=== PATIENT | female | born 1980 | race Caucasian/White ===

== ENCOUNTER 2016-09-08 03:51 | Emergency (ER) | payer MEDICAID, OTHER ==
[~2016-09-08] VITALS: Ht 157.5 cm; Wt 67.0 kg
[2016-09-08 03:53] VITALS: Ht 157.5 cm; Wt 67.0 kg
[2016-09-08 05:06] LABS: URINE BLOOD (Dip) POC 2+ (NEGATIVE)
--- NOTE | 2016-09-08 05:24 | ERD ---
ER Documentation Chief Complaint Date/Time DATE: 09/08/16 TIME: 05:10 Chief Complaint Frequent urination with burning HPI 36-year-old female presents here in emergency department for complaints of pain upon urination, patient described the pain as burning pain, 4/10 scale, is worse upon urination. Patient is quite of urinary urgency and frequency. Patient denies any abdominal pain or flank pain. Patient denies any fever or chills. Patient denies any nausea or vomiting. ROS All systems reviewed and are negative except as per history of present illness. Medications Home Meds Reported Medications [none] Unknown Strength No Conflict Check 09/08/16 Allergies Allergies: Coded Allergies: No Known Allergy (Unverified , 09/08/16) PMhx/Soc Hx Miscellaneous Medical Probl: Yes (TUBAL LIGATION) Hx Alcohol Use: No Hx Substance Use: No Hx Tobacco Use: No Smoking Status: Never smoker FmHx Family History: No coronary disease, No diabetes, No other Physical Exam Vitals Vital Signs Date Time Temp Pulse Resp B/P Pulse Ox O2 Delivery O2 Flow Rate FiO2 09/08/16 03:53 98.4 79 18 126/72 98 Physical Exam GENERAL: The patient is well developed and appropriate for usual state of health, in no apparent distress. CHEST: Clear to auscultation bilaterally. There are no rales, wheezes or rhonchi. HEART: Regular rate and rhythm. No murmurs, clicks, rubs or gallops. No S3 or S4. ABDOMEN: Soft, nontender and nondistended. Good bowel sounds. No rebound or guarding. No gross peritonitis. No gross organomegaly or masses. No Brizuela sign or McBurney point tenderness. BACK: No midline or flank tenderness. EXTREMITIES: Equal pulses bilaterally. There is no peripheral clubbing, cyanosis or edema. No focal swelling or erythema. Full range of motion. Grossly neurovascularly intact. NEURO: Alert and oriented. Cranial nerves 2-12 intact. Motor strength in all 4 extremities with 5/5 strength. Sensation grossly intact. Normal speech and gait. SKIN: There is no apparent rash or petechia. The skin is warm and dry. HEMATOLOGIC AND LYMPHATIC: There is no evidence of excessive bruising or lymphedema. No gross cervical, axillary, or inguinal lymphadenopathy. Results 24 hrs Laboratory Tests Test 09/08/16 05:08 Bedside Urine Blood 2+ Bedside Urine Glucose (UA) Negative Bedside Urine Ketones (LAB) Negative Bedside Urine Leukocyte Esterase (L 2+ Bedside Urine Nitrite (LAB) Negative Bedside Urine Protein (LAB) Trace Bedside Urine pH (LAB) 6.0 Procedures/MDM Medical Decision Making: Patients symptoms are consistent with urinary tract infection. There is low suspicion for pyelonephritis. There is low suspicion for abdominal emergencies at this time. Patients abdominal exam is normal. There is low suspicion for sepsis. Patient appears well and is hemodynamically stable. Prescription: Pyridium, Macrobid Departure Diagnosis: Primary Impression: UTI (urinary tract infection) Urinary tract infection type: acute cystitis Hematuria presence: without hematuria Qualified Code: N30.00 - Acute cystitis without hematuria Condition: Stable Patient Instructions: Understanding Urinary Tract Infections (UTIs) CELIA PELLETIER NP Sep 08, 2016 05:23
[2016-09-08] MEDS ORDERED: NITR-58 PO (05:26)
[2016-09-08] MEDS ORDERED: PHEN-538 PO (05:26)
== END 2016-09-08 05:32 | disposition home or self-care (01) ==
LOC: FTE 03:51
DX: N30.00 Acute cystitis without hematuria (principal)
CPT/HCPCS: 81003; Z7502; 99283

== ENCOUNTER 2016-11-03 15:49 | Emergency (ER) | payer MEDICAID ==
[~2016-11-03] VITALS: Ht 154.9 cm; Wt 65.0 kg
[~2016-11-03 15:49] MED LIST: NITR-58 PO; PHEN-538 PO
[2016-11-03 16:10] VITALS: Ht 154.9 cm; Wt 65.0 kg
[2016-11-03] MEDS ORDERED: ONDANSETRON (ODT) 4 MG TAB ODT STA (18:50)
[2016-11-03] MEDS ORDERED: ACETAMINOPHEN 325 MG TAB PO ONE (19:00)
[2016-11-03] MEDS ORDERED: IBUPROFEN 600 MG TAB PO ONE (19:00)
[2016-11-03] MEDS ORDERED: ONDA4TAB14 PO (20:04)
[2016-11-03] MEDS ORDERED: ACET500C5 PO (20:04)
[2016-11-03] MEDS ORDERED: IBUP-1542 PO (20:04)
[2016-11-03 20:34] VITALS: BP 118/73; PULSE 73; RESP 20; TEMP 99.2
--- NOTE | 2016-11-03 22:28 | ERD ---
ER Documentation Chief Complaint Date/Time DATE: 11/03/16 TIME: 22:25 Chief Complaint CISNEROS X 1 DAY FEVER 102.2 HPI 36-year-old female with no significant past medical history presents the ED complaining of headache that started last night associated with a fever of 102. Patient states that usually when she takes Advil, her headache resolves. States that it feels like a pulsating sensation on the top of her head and she had a gradual onset. Reports that this headache feels the same as her usual headaches that she gets in June. Denies any head trauma, seizures, weakness , numbness or tingling, chest pain, shortness of breath, neck stiffness, neck pain, cough, chills. Denies any dizziness, blurred vision, diplopia, photophobia , phonophobia. ROS All systems reviewed and are negative except as per history of present illness. Medications Home Meds Active Scripts Ondansetron (Ondansetron Odt) 4 Mg Tab.rapdis, 4 MG PO Q6H Y for NAUSEA AND/OR VOMITING, #10 TAB Prov:MICAH ROONEY PA-C 11/03/16 Acetaminophen* (Tylophen*) 500 Mg Capsule, 1 CAP PO Q6H Y for PAIN AND OR ELEVATED TEMP, #30 CAP Prov:MICAH ROONEY PA-C 11/03/16 Ibuprofen* (Motrin*) 600 Mg Tab, 600 MG PO Q6, #30 TAB Prov:MICAH ROONEY PA-C 11/03/16 Nitrofurantoin Monohyd Macrocr* (Macrobid*) 100 Mg Capsr, 100 MG PO BID for 7 Days, CAP Prov:CELIA PELLETIER NP 09/08/16 Phenazopyridine Hcl* (Pyridium*) 200 Mg Tab, 200 MG PO TID Y for URINARY PAIN, # 6 TAB Prov:CELIA PELLETIER NP 09/08/16 Reported Medications [none] Unknown Strength No Conflict Check 09/08/16 Allergies Allergies: Coded Allergies: No Known Allergy (Unverified , 09/08/16) PMhx/Soc Medical and Surgical Hx: pt denies Medical Hx History of Surgery: Yes (c section) Anesthesia Reaction: No Hx Miscellaneous Medical Probl: Yes (TUBAL LIGATION) Hx Alcohol Use: No Hx Substance Use: No Hx Tobacco Use: No Smoking Status: Never smoker Physical Exam Vitals Vital Signs Date Time Temp Pulse Resp B/P Pulse Ox O2 Delivery O2 Flow Rate FiO2 11/03/16 20:34 99.2 73 20 118/73 98 Room Air 11/03/16 16:10 102.2 109 17 120/72 99 Physical Exam Const: [id number], well-nourished. In no acute distress. Head: Atraumatic, normocephalic Eyes: Normal Conjunctiva without injection. No purulent discharge. PERRLA. EOMI ENT: Normal external ear. Ear canal without erythema. Tympanic membrane pearly perdomo without effusion or bulging. Nasal canal clear with normal turbinates. Moist oropharynx without tonsillar exudates. Non-erythematous pharynx. Uvula midline. No drooling. No trismus. Neck: No cervical midline tenderness. Full range of motion. No meningismus. No cervical lymphadenopathy. No JVD. Negative Brudzinski's sign. Negative Kernig' s sign. Resp: Clear to auscultation bilaterally. No wheezing, rhonchi, rales, or crackles. No accessory muscle use. No retractions. Cardio: Regular rate and rhythm. No murmurs, rubs or gallops. Abd: Soft, non tender, non distended. Normal bowel sounds. No palpable masses. No rebound tenderness. No guarding. Negative McBurney's Point. Negative Brizuela's Sign. Skin: Normal skin turgor. No petechiae or rashes Back: No midline tenderness. No CVA tenderness. Ext: No cyanosis, or edema. Distal pulses intact bilaterally. Neur: Awake and alert. Normal gait. Normal coordination. Cranial Nerves II- VII intact. Normal finger to nose. Muscle strength 5/5. Sensation intact. Psych: Normal Mood and Affect Results 24 hrs Current Medications Medications (Trade) Dose Ordered Sig/Jose Route PRN Reason Start Time Stop Time Status Last Admin Dose Admin Ibuprofen (Motrin) 600 mg ONCE ONCE PO 11/03/16 19:00 11/03/16 19:01 DC 11/03/16 19:23 Acetaminophen (Tylenol Tab) 650 mg ONCE ONCE PO 11/03/16 19:00 11/03/16 19:01 DC 11/03/16 19:23 Ondansetron HCl (Zofran Odt) 4 mg ONCE STAT ODT 11/03/16 18:50 11/03/16 18:52 DC 11/03/16 19:23 Procedures/MDM This is a 36-year-old female with no significant past medical history presents the ED complaining of a headache and fever. Patient is afebrile and nontoxic- appearing. Patient has normal vital signs. Patient has a fever of 102.2. Ibuprofen, Tylenol, Zofran was ordered to further treat patient. Patient states that her symptoms are improved and they have resolved. Patient likely has symptoms consistent with viral etiology. No meningismus noted here in the ED. Negative Brudzinski and Kernig sign. Low suspicion for meningitis, TIA, stroke, intracranial bleed, acute neurological deficits, mass-effect, subarachnoid hemorrhage, subdural hematoma, epidural hematoma, carotid dissection, brain aneurysm or other emergent conditions. Discharge medications: Ibuprofen, Tylenol, Zofran Follow up with primary care physician in 1-2 days. Instructed patient to return to the ED sooner for any worsening symptoms. Patient's questions were answered. Patient understood and agreed with discharge plan. Patient discharged stable. Departure Diagnosis: Primary Impression: Fever Fever type: unspecified Qualified Code: R50.9 - Fever, unspecified fever cause Additional Impression: Headache Headache type: unspecified Headache chronicity pattern: unspecified pattern Intractability: not intractable Qualified Code: R51 - Nonintractable headache, unspecified chronicity pattern, unspecified headache type Condition: Stable Patient Instructions: Fever Control (Adult), Headache, Unspecified Referrals: [facility] () Usted se cisneros hecho un examen mdico de control que le indica que no est en garry condicin que requiera tratamiento urgente en el Departamento de Emergencia. Un estudio ms profundo y el tratamiento de anguiano condicin pueden esperar sin ningn riesgo hasta que usted sea atendida/o en el consultorio de anguiano mdico o garry cl darrion. Es responsabilidad suya arreglar garry chuck para el seguimiento del che. MANEJO DE CONDICIONES NO URGENTES EN EL FUTURO 1) Si usted tiene un mdico de atencin primaria: Usted debera llamar a anguiano mdico de atencin primaria antes de venir al departamento de emergencia. Despus de las horas de consultorio, anguiano doctor o anguiano asociado/a est disponible por telfono. El mdico o enfermero de [place] en el servicio telefnico puede asesorarle por jay medio para atender el problema, o che contrario se puede programar garry chuck. 2) Si usted no tiene un mdico de atencin primaria: Llame al mdico o clnica de referencia que aparece abajo primo las horas de consultorio para hacer garry chuck para que le vean. CLINICAS: [facility] [phone] [facility] [phone] [facility] [phone] [place] [id number] [phone] [place] [id number] [phone] [facility]. [phone] [facility] () Usted se cisneros hecho un examen mdico de control que le indica que no est en garry condicin que requiera tratamiento urgente en el Departamento de Emergencia. Un estudio ms profundo y el tratamiento de anguiano condicin pueden esperar sin ningn riesgo hasta que usted sea atendida/o en el consultorio de anguiano mdico o garry cl darrion. Es responsabilidad suya arreglar garry chuck para el seguimiento del che. MANEJO DE CONDICIONES NO URGENTES EN EL FUTURO 1) Si usted tiene un mdico de atencin primaria: Usted debera llamar a anguiano mdico de atencin primaria antes de venir al departamento de emergencia. Despus de las horas de consultorio, anguaino doctor o anguiano asociado/a est disponible por telfono. El mdico o enfermero de [place] en el servicio telefnico puede asesorarle por jay medio para atender el problema, o che contrario se puede programar garry chuck. 2) Si usted no tiene un mdico de atencin primaria: Llame al mdico o condado institucions de referencia que aparece abajo primo las horas de consultorio para hacer garry chuck para que le vean. SI USTED NO PUEDE PAGAR PARA NEHEMIAS UN MEDICO puede ir a: [facility] [address] [place] [address] [facility] [address] [place] [address] [facility] [address] [place] [address] [facility] [place] [address] [place] [address] [facility] Additional Instructions: Llame al doctor MAANA y alfonso garry CHUCK PARA DENTRO DE 1-2 MYERS.Dgale a la secretaria que nosotros le instruimos hacer esta chuck.Avise o llame si anguiano condicin se empeora antes de la chuck. Regresa aqui si peor o no mejor. MICAH ROONEY PA-C Nov 03, 2016 22:28
== END 2016-11-03 20:34 | disposition home or self-care (01) ==
LOC: FTE 15:49
DX: R50.9 Fever, unspecified (principal)
CPT/HCPCS: Z7502; Z7610; 99283

== ENCOUNTER 2017-11-06 02:31 | Emergency (ER) | END 2017-11-06 05:19 | disposition home or self-care (01) ==

== ENCOUNTER 2017-11-21 19:42 | Emergency (ER) | END 2017-11-21 20:46 | disposition home or self-care (01) ==

== ENCOUNTER 2018-04-17 23:24 | Emergency (ER) | END 2018-04-18 03:21 | disposition home or self-care (01) ==

== ENCOUNTER 2018-05-15 21:08 | Emergency (ER) | END 2018-05-16 00:42 | disposition home or self-care (01) ==